=== PATIENT | male | born 1980 | race Caucasian/White ===

== ENCOUNTER 2022-06-12 13:16 | Emergency (ER) | payer BC ==
[2022-06-12] MEDS ORDERED: AMLODIPINE BESY10 MG PO (16:52)
[2022-06-12] MEDS ORDERED: METO100ER PO (16:52)
== END 2022-06-12 17:57 | disposition home or self-care (01) ==
DX: R07.9 Chest pain, unspecified (principal); I10 Essential (primary) hypertension; F17.210 Nicotine dependence, cigarettes, uncomplicated